=== PATIENT | male | born 1950 | race Caucasian/White ===

== ENCOUNTER → 2016-12-22 | Day surgery (SDC) | payer MEDICARE ==
[~2016-12-22] VITALS: Ht 170.2 cm; Wt 127.0 kg
[~2016-12-22] MED LIST: ASPI-973 PO; ATOR80TA PO; CHOL200078 PO; CINN500C14 PO; HYDR25TA4 PO; INSLIS SUBQ; INSU100V7 SUBQ; KEP500TA PO; LACO200T2 PO; LAMO200T2 PO; LAMO25TA PO; LISI-567 PO; Lactated Ringer's 1,000 ML IV ONE; METF500T4 PO; PARO40TA47 PO; PHN100C PO; SIMV80TA4 PO
[2016-12-22 12:36] VITALS: BP 120/57; PULSE 74; RESP 16; O2SAT 95
--- NOTE | 2016-12-22 13:35 | PCM.HPANE ---
Patient Data Surgeon Admitting Provider: Attending Provider:Mirian Figueroa MD Primary Care Physician:Yenny Gonzalez Other Provider:Js Desai Anesthesia Reason for Visit Colon Polyp Ht/WT & BMI Height (Feet): 5 Height (Inches): 7 Weight (Kilograms): 127.01 Body Mass Index 43.00 Allergies Coded Allergies: levofloxacin (Verified Allergy, Mild, 12/20/16) cholestyramine (Verified Allergy, Unknown, 12/20/16) sucrose (Verified Allergy, Unknown, 12/20/16) niacin (Verified Adverse Reaction, Mild, flushed, 12/22/16) Past Anesthesia History Anesthesia History: Denies:: Abnormal Airway, Anesthesia Reactions, Difficult Intubation, Fam Anesthesia Reaction, Fam Malignant Hypertherm, Malignant Hyperthermia Diabetes History Hx Diabetes?: Yes Current Bedside Blood Glucose: 97 MRSA MRSA: No Medications Blood Thinner: Aspirin Last Dose Blood Thinner: Dec 12, 2016 Home Meds Incl Beta Cathy: No Reported Medications Cholecalciferol (Vitamin D3) (Vitamin D3)2,000 Unit Tab.chew2,000 Unit PO DAILY 12/20/16 Simvastatin 80 Mg Iarzel03 Mg PO HS 30 Days Ref 0 12/20/16 Aspirin 81 Mg Zckbaf25 Mg PO DAILY 03/11/16 Hydrochlorothiazide 25 Mg Ynbksu39 Mg PO DAILY 03/11/16 Lamotrigine 200 Mg Ifisau323 Mg PO BID Ref 0 03/11/16 Lamotrigine 25 Mg Txbmll75 Mg PO BID Ref 0 03/11/16 Levetiracetam (Keppra)500 Mg Hxeitp585 Mg PO BID 03/11/16 Lacosamide (Vimpat)200 Mg Iaonwd059 Mg PO BID 03/11/16 Atorvastatin (Lipitor)80 Mg Uyxfme75 Mg PO DAILY 03/11/16 Paroxetine (Paxil)40 Mg Npwsjr44 Mg PO AM 30 Days Ref 0 05/03/14 Cinnamon Bark (Cinnamon)500 Mg Capsule1,000 Mg PO BID 05/03/14 Insulin Human Lispro (HumaLOG U100 Insulin Vial)100 Unit/Ml Rxee01-55 SUBQ HS # 20 ML Ref 3 Check blood sugars before meals and at bedtime. Use correction factor only before meals. Blood Sugar Lispro Correction: <151, 0 units; 151-175, 1 unit; 176-200, 2 units; 201-225, 3 units; 226-250, 4 units; 251-275, 5 units; 276-300, 6 units; 301-325, 7 units; 326-350, 8 units; 351-375, 9 units; 376-400, 10 units; >400, 12 units. 05/03/14 Insulin Glargine (Lantus U100 Insulin Vial)100 Unit/Ml Vial50 Unit SUBQ QPM- INSULIN #1 VIAL Ref 0 05/03/14 Lisinopril 20 Mg Tvzxcx27 Mg PO AM 30 Days Ref 0 05/03/14 Metformin 500 Mg Tablet1,000 Mg PO BIDWM 30 Days 05/03/14 Discontinued Reported Medications Phenytoin Sodium ER (Dilantin)100 Mg Stiejvi201 Mg PO TID 12/20/16 Last Time Dose Received Held metformin and cinnamon today History History of ENT Problems?: Yes HEENT History: Positive for:: Cataracts Dysphagia Denies:: Abnormal Airway Difficult Intubation Hearing Problem Denture Type: None Teeth Condition: Within Normal Limits Hx of Heart Problems?: Yes Cardiovascular History: Positive for:: Hypertension Denies:: AICD Atrial Fibrillation Chest Pain Congestive Heart Failure Pacemaker Valvular Heart Disease Other History/Comments No CP or hx [place] Hx of Respiratory Problem?: Yes Respiratory History: Denies:: Asthma COPD Cough Hemoptysis Pneumonia Tuberculosis Other Resp Pertinent History: SOB with seizure activity Hx Neurologic Problems?: Yes Neurological History: Denies:: Alzheimer's Disease CVA Other History/Comments seizures. Last was a few weeks ago. Hx of GI Problems?: Yes Other GI Pertinent History: kidney disease-diabetes elevated creatinine. stable currently diabetes Mellitus Hx of Problems?: No Male Hx: Positive for:: Testicular Surgery (vasectomy) Denies:: Prostate Problems Hx Musculoskeletal Problems?: Yes Musculoskeletal History: Denies:: Fibromyalgia Joint Replacement Hx of Psycho/Social Problems?: No Psycho Social History: Positive for:: Anxiety (sometimes) Hx Depression Hx Surgeries?: Yes (bone spur lowr mandble, craniotomy) Hx Any Other Health Problems?: Yes Other History: Positive for:: Hospitalization (when he was 10 years old he had a bone cyst removed) Denies:: Cancer Thyroid Disease History Blood Transfusions: Denies:: Blood Transfuse Reaction Blood Transfusions Hx Diabetes: YesBedside Blood Glucose: 97 Hx Alcohol Use: NoHx Substance Use: No Smoking Status: Never Smoker Have You Smoked inLast 12 mo: No Stop/Bang Treated for Sleep Apnea?: Yes Do You Have a CPAP Machine?: Yes Risk Assessment Category Category 1A: Patient has history of documented sleep apnea, and HAS NOT received any narcotic, sedative or anesthesia administration during this stay. Category 1B: Patient has history of documented sleep apnea, and HAS received any narcotic , sedative or anesthesia administration during this stay Category 2: Patient has SUSPECTED Obstructive Sleep Apnea, and HAS received any narcotic , sedative or anesthesia administration during this stay. Category 3: Patient has SUSPECTED Obstructive Sleep Apnea and HAS NOT received narcotic, sedative or anesthesia administration during this stay. Category 4: Outpatient in Procedural Areas with known sleep apnea or who screen positive for High Risk via the STOP/BANG questionnaire. Exam Exam Vital Signs Vital Signs Date Time Temp Pulse Resp B/P Pulse Ox O2 Delivery O2 Flow Rate FiO2 12/22/16 12:36 74 16 120/57 95 Room Air General Appearance: Alert, Oriented X3 HEENT/AIRWAY: MP 2 Lungs: Clear to Auscultation, Clear to Percussion Heart: Exam Unremarkable, Regular Rate/Rhythm Meds/Labs/Diagnostics Bedside Blood Glucose: 97 Plan Impression Patient chart reviewed, patient interviewed and anesthestic plan with risks, benefits, and alternatives discussed, and informed consent obtained. ASA Physical Status: ASA3 Severe Disease (Seizures; DM; morbid obesity) Anesthetic Plan: MAC Bene/Risks/Altern/Consents: Yes HP Complete Prior to Induction: Yes Felipe Rendon MD Dec 22, 2016 13:35
[2016-12-22 14:35] VITALS: BP 122/63; PULSE 64; RESP 14; O2SAT 96
--- NOTE | 2016-12-22 14:38 | PCM.ANEP1 ---
Post Anesthesia PACU Phase 1 Assessment Vital Signs Vital Signs Date Time Temp Pulse Resp B/P Pulse Ox O2 Delivery O2 Flow Rate FiO2 12/22/16 14:35 64 14 122/63 96 Room Air 12/22/16 12:36 74 16 120/57 95 Room Air Anesthetic Administered: MAC Level of Alertness: Awake, talking YORK's with Equal Strength: Yes Pain: No Nausea or Vomiting: No CV Function & Hydration Stable: Yes Airway Device: Oxygen Delivery: Room Air Lungs: Clear to Auscultation, Clear to Percussion PACU Phase 2 Assessment Complications: No Follow up Care: No Patient Instructions Provided: N/A Comments See anesth record for PACU VS> PACU VSS Felipe Rendon MD Dec 22, 2016 14:38
[2016-12-22 14:48] VITALS: BP 122/63; PULSE 95; RESP 15; O2SAT 97
[2016-12-22 14:55] VITALS: BP 117/55; PULSE 65; RESP 16; O2SAT 98
--- NOTE | 2016-12-22 14:58 | ENDO ---
[address] [address] ENDOSCOPY PROCEDURE PATIENT: TEO TENORIO : 1950 MR#: [id number] ADMIT: 12/22/2016 JOB ID: [id number] PREPROCEDURAL DIAGNOSIS: Colon polyps. POSTPROCEDURAL DIAGNOSIS: Colon polyps. PROCEDURE PERFORMED: Colonoscopy with cold forceps biopsy x1. SURGEON: Mirian Figueroa MD PRODUCTION MATERIAL HANDLER: Aurora Biswas MD, R3 HISTORY OF PRESENT ILLNESS: This is a 66-year-old man who underwent a screening colonoscopy in 2013. At that time there was a 4 mm polyp in the descending colon which was removed with a hot snare. The pathology was hyperplastic. The prep was considered to be inadequate/suboptimal, and repeat was recommended in three years with two days of clear liquids and a double split prep. This was performed for today's colonoscopy. INSTRUMENT: Olympus PCF H 180 AL ANESTHESIA: Monitored anesthesia care. WITHDRAWAL TIME: 21 minutes. PREPARATION QUALITY: Good. A double split prep was performed. FINDINGS: Normal colonoscopy to the cecum, with the exception of one 5 mm polyp in the sigmoid colon, removed with cold forceps. DESCRIPTION OF PROCEDURE: The patient was brought to the procedure suite and placed in the left lateral decubitus position. A preprocedural pause was performed to confirm the correct patient, procedure, and site. A digital rectal examination was performed and was normal. External examination was normal. The colonoscope was then advanced to the cecum, which was identified by the coalescence of the tenia and the ileocecal valve. The prep was good throughout, although within the cecum there was a constant flow of fluid which required suctioning in order to adequately visualize it. There was a single polyp at 17 cm in the sigmoid colon which was removed with cold forceps. There were no additional polyps, strictures, masses, or other mucosal abnormalities within the colon. The withdrawal time was 21 minutes. The colonoscope was retroflexed in the rectum, which was normal. The scope was removed. The patient tolerated the procedure well. COMPLICATIONS: None. ESTIMATED BLOOD LOSS: None. SPECIMENS: Sigmoid colon polyp at 17 cm.
--- NOTE | 2016-12-24 12:46 | PATH ---
SURGICAL PATHOLOGY Attending Physician:Mirian Figueroa MD CASE STATUS: Signed Out PATIENT NAME: TEO TENORIO PID: [id number] : 1950 DATE COLLECTED:12/22/2016 00:00 SPECIMEN: Colon, Polyp CLINICAL HISTORY: 1). SIGMOID POLYP X 1 FINAL DIAGNOSIS: Sigmoid Polyp x1, Biopsy: Hyperplastic polyp. ICD10: K63.5 GROSS DESCRIPTION: The specimen is received in one formalin filled container labeled with the patient's name, sublabeled "sigmoid polyp x1" and consists of 2 portions of tissue which aggregate to 0.2 x 0.2 x 0.1 CM. The specimen is entirely submitted in one cassette. 12/23/2016FL ICD-9 CODES: CPT CODES: 1: 94686 Electronically Signed Out Maurice Barker MD, PhD [facility]., [address] [place] [address], [place] [address] Technical component performed at [facility], [address] [place] [address] Ave[address], [place], [address]
== END | disposition home or self-care (01) ==
LOC: END 00:32
PROVIDERS: ATTEND Surgery
DX: Z12.11 Encounter for screening for malignant neoplasm of colon (principal); Z86.010 Personal history of colon polyps; K63.5 Polyp of colon; I10 Essential (primary) hypertension; E78.5 Hyperlipidemia, unspecified; D50.9 Iron deficiency anemia, unspecified; E11.9 Type 2 diabetes mellitus without complications; G47.33 Obstructive sleep apnea (adult) (pediatric); E83.52 Hypercalcemia; K21.9 Gastro-esophageal reflux disease without esophagitis; F41.8 Other specified anxiety disorders; G40.909 Epilepsy, unspecified, not intractable, without status epilepticus; F42.9 Obsessive-compulsive disorder, unspecified; F32.9 Major depressive disorder, single episode, unspecified; Z79.82 Long term (current) use of aspirin; Z79.84 Long term (current) use of oral hypoglycemic drugs; Z79.4 Long term (current) use of insulin
CPT/HCPCS: 45380; J7120